=== PATIENT | male | born 1945 | race Caucasian/White ===

== ENCOUNTER 2016-07-29 06:43 | Day surgery (SDC) | payer MEDICARE ==
[~2016-07-29 06:43] MED LIST: ceFAZolin 1 GM in NORMAL SALINE MINI-BAG+ 100 ML IV ONE
[2016-07-29] MEDS ORDERED: ceFAZolin 1 GM/10 ML VIAL ONE (07:10)
[2016-07-29] MEDS ORDERED: BUPIVACAINE/EPI 0.25% 1 VIAL VIAL ONE (07:12)
[2016-07-29] MEDS ORDERED: BACITRACIN 14 APP/14 GM TUBE TOPICAL ONE (07:13)
[2016-07-29] MEDS ORDERED: SUCCINYLCHOLINE CHLORIDE 200 MG/10 ML VIAL ONE (07:35)
[2016-07-29] MEDS ORDERED: LIDOCAINE HCL 2% 20 ML VIAL ONE (07:35)
[2016-07-29] MEDS ORDERED: FENTANYL 250 MCG/5 ML VIAL ONE (07:35)
[2016-07-29] MEDS ORDERED: ROCURONIUM BROMIDE 50 MG/5 ML VIAL IV ONE (07:35)
[2016-07-29] MEDS ORDERED: ONDANSETRON HCL 4 MG/2 ML VIAL ONE (07:36)
[2016-07-29] MEDS ORDERED: DEXAMETHASONE 10 MG/ML VIAL ONE ×3 (07:37→09:18)
[2016-07-29] MEDS ORDERED: KETOROLAC TROMETHAMINE 30 MG/ML VIAL ONE (08:05)
[2016-07-29] MEDS ORDERED: DESFLURANE 240 ML BTL INHALATION ONE (08:58)
[2016-07-29 09:08] VITALS: TEMP 97.2
[2016-07-29 09:12] VITALS: O2SAT 96
[2016-07-29] MEDS ORDERED: BUPIVACAINE HCL/PF 0.25% 10 ML VIAL INJ ONE (09:18)
[2016-07-29] MEDS ORDERED: MORPHINE SULFATE 2 MG/ML SYR IV PRN (09:32)
[2016-07-29] MEDS ORDERED: MORPHINE SULFATE 10 MG/ML SYR ONE (09:38)
[2016-07-29 09:39] VITALS: PULSE 51
[2016-07-29] MEDS ORDERED: NORMAL SALINE FLUSH 10 ML ONE (09:40)
[2016-07-29 09:48] VITALS: BP 131/75; RESP 13
--- NOTE | 2016-07-29 10:54 | OPERATIVE REPORT ---
DATE OF SURGERY: 07/29/16 SURGEON: Suman Moseley DO ANESTHESIA: General. 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 POSTOPERATIVE DIAGNOSIS: Left knee medial meniscal tear, lateral meniscal tear, synovitis with chondromalacia. OPERATION PERFORMED: Left knee arthroscopy with medial and lateral meniscectomy , patella and trochlea chondroplasty, removal of loose body and synovectomy. SPECIMENS REMOVED: Pedunculated synovitis loose body. ESTIMATED BLOOD LOSS: Minimal. COMPLICATIONS: None. TOTAL TOURNIQUET TIME: 53 minutes. PROCEDURE NOTE: The patient was brought to the operating room suite and after administration of general anesthesia the left lower extremity was prepped and draped in a sterile fashion. A well padded tourniquet was applied to the left proximal thigh. The portal sites were injected with 0.25% bupivacaine with epinephrine prior to incision. The anterior lateral portal was created first and the anterior medial was created under direct visualization after first inserting a spinal needle. Diagnostic arthroscopy revealed the left knee medial meniscal tear, lateral meniscal tear, synovitis with chondromalacia. In the medial compartment of the knee there was a large pedunculated loose body which was very mobile and was a dark brown hemosiderin color and had fat which appeared to be dark yellow fat on the interior which was very dense. This lesion looked like it had been there for quite some time and had some vascularity throughout the synovitis on its surface with a core of dark dense yellow fat. This lesion was removed with a oscillating shaver. Synovitis throughout the knee was also removed in all 3 compartments. The patient had a complex tear of the medial meniscus which was saucerized back to a stable margin. The lateral meniscus was also torn at the anterior horn along its margin, which was also saucerized back to a stable margin with arthroscopic instrumentation. The trochlea and patella had grade 2 chondromalacia which was debrided and taken back to stable cartilage tissue. The knee was drained of all arthroscopic fluid and was closed using simple interrupted 3-0 nylon sutures. The knee was then injected with 10 mg of Dexamethasone. It was also dressed with bacitracin ointment, Xeroform, 4x4s, ABDs, cast padding, and an Rosalino. The patient was transferred from the operating room suite to the recovery room in stable condition. MICHELLE
--- NOTE | 2016-08-06 12:30 | PREOPERATIVE H&P ---
History of Present Illness (Suman Moseley DO; 07/20/2016 3:59 PM) The patient is a 71 year old male. Note:Patient presents to review his findings of his left knee MRI. Allergies (Janee Lopez, DAVIS; 07/20/2016 2:27 PM) No Known Drug Allergies Family History (Janee Lopez RN; 07/20/2016 2:27 PM) Mother @ 88 of Parkinson's, AAA Social History (Janee Lopez, DAVIS; 07/20/2016 2:27 PM) Tobacco Use Never smoker. Alcohol Use Occasional alcohol use, Drinks beer. 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 Flonase Allergy Relief (50MCG/ACT Suspension, 1 (one) Suspension Nasal 2 sprays each nostril daily, Taken starting 10/13/2015) Active. Cialis (5MG Tablet, 1 Tablet Oral daily for BPH, Taken starting 01/20/2016) Active. Gabapentin (100MG Capsule, 1 (one) Capsule Oral 1 tab bid x 1 wk, then 2 tab bid x 1 wk, Taken starting 07/07/2016) Active. Ativan (2MG Tablet, 1 (one) Tablet Oral 30 minutes prior to procedure, Taken starting 07/07/2016) Active. Centrum Silver Ultra Mens (Oral) Specific dose unknown - Active. Flax Seed Oil (Oral) Specific dose unknown - Active. Co Q 10 (100MG Capsule, Oral once daily) Active. Glucosamine Chondroitin Complx (one Oral daily) Specific dose unknown - Active. Hytrin (10MG Tablet, 1 Oral QHS) Active. Bisoprolol-Hydrochlorothiazide (2.5-6.25MG Tablet, 1 Oral daily PRN) Active. Ibuprofen (400MG Tablet, 1 Oral daily-TID PRN) Active. Fluorouracil Cream (PRN) Active. Nicotinamide (Riboside 100mg daily) Active. Nutritional Supplements (Macugard Oral [ocular supplement w/ Astaxanthin]) Active. Probiotic Formula (Florassist Oral) Active. Nutritional Supplements (Cognitex Oral) Active. Prostate (Oral) Active. Medications Reconciled Review of Systems (Janee Lopez RN; 07/20/2016 2:27 PM) General Not Present- Chills and Fever. Skin Not Present- Erythema, Skin Color Changes and Skin Problems. HEENT Not Present- Sleep Apnea. Neck Not Present- Neck Pain. Respiratory Not Present- Cough and Shortness of Breath. Cardiovascular Not Present- Chest Pain, Difficulty Breathing On Exertion, Fainting and Leg Pain and/or Swelling. Gastrointestinal Not Present- Abdominal Pain, Nausea and Vomiting. Male Genitourinary Not Present- Painful Urination and Urethral Discharge. Musculoskeletal Not Present- Decreased Range of Motion, Joint Pain, Joint Stiffness, Joint Swelling, Muscle Pain and Muscle Weakness. Neurological Not Present- Dizziness, Focal Neurological Symptoms, Numbness in extremities, Trouble walking and Weakness. Psychiatric Not Present- Anorexia, Anxiety and Depression. Endocrine Not Present- Weight Loss. Hematology Not Present- Bleeding Problems, DVT and Easy Bruising. Vitals (Janee Lopez RN; 07/20/2016 2:27 PM) 07/20/2016 2:26 PM Weight: 227 lb Height: 70.5in Body Surface Area: 2.21 m Body Mass Index: 32.11 kg/m Pulse: 68 (Regular) Resp.: 16 (Unlabored) BP: 112/70 (Sitting, Left Arm, Standard) Physical Exam (Suman Moseley DO; 07/20/2016 3:59 PM) MRI demonstrates chondromalacia of the medial femoral condyle and trochlea. There is also a tear in the medial meniscus. Assessment & Plan (Suman Moseley DO; 07/20/2016 4:00 PM) Acute medial meniscal tear, left, initial encounter (S83.242A) Impression: After educating the patient regarding treatment options with their associated risks and benefits, the patient elected to proceed with surgical treatment of the injury/pathology with LEFT KNEE ARTHROSCOPY. The risks and benefits of the specific procedure were explained and all questions and concerns were addressed and answered. Post operative rehabilitation requirements and expectations for optimal outcome were reviewed and the patient confirmed understanding these and committed to compliance. All questions answered. The patient will be optimized medically by consultation with their primary care physician prior to their procedure. Chondromalacia, left knee (M94.262) Signed by Suman Moseley DO (07/20/2016 4:00 PM) Patient was examined at bedside and no changes were noted. Signed Suman Moseley DO 07/29/2016. MTDD
--- NOTE | 2016-08-06 12:32 | PREOPERATIVE H&P ---
History of Present Illness (Janina Monroy RN; 07/22/2016 1:16 PM) The patient is a 71 year old male who presents for a consult. The patient is seen in consultation for other (Dr. Moseley). Subjective Barker Peeler(Andrés Gomez M.D.; 07/30/2016 2:35 PM) CC: Consult. Patient is a 71-year-old male has been referred by Orthopedic Surgeon Dr. Moseley for consultation, preoperative history and physical and surgical clearance. He is scheduled for left knee arthroscopy on 07/29/16. Please see Dr. Moseley's notes for further details with respect to the left knee. There are no concerns at this time. He continues to function at a 4 METS level. Hypertension, hyperlipidemia, hypertriglyceridemia, hypotestosteronism, BPH, obstructive sleep apnea on CPAP, PSVT, etc., are all stable. Reviewed updated allergies, medications, past medical history, social history and family history in detail with no significant changes warranted. ROS: No heart, lung, kidney infection, liver, diabetes, thyroid, seizures, PUD, skin, allergies or bleeding disorders. PREVENTIVE HEALTH: Gets annual flu shot. Had pneumovax and Prevnar in the past. 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) L1-L2, L5-S1; Dr Miller ED (erectile dysfunction) (N52.9) Effusion of left knee (M25.462) Fatigue (R53.83) History of renal stone (Z87.442) HTN (hypertension) (I10) Hyperlipidemia (E78.5) Hypertriglyceridemia (E78.1) Hypotestosteronism (E29.1) Knee pain, bilateral (M25.561, M25.562) Left lumbar radiculopathy (M54.16) Low back pain (M54.5) Macular Telangiectasia Obesity (E66.9) MEENA on CPAP (G47.33) CPAP Osteoarthritis (M19.90) Knees, Hips Osteoarthritis of knees, bilateral (M17.0) Dr Moseley PSVT (paroxysmal supraventricular tachycardia) (I47.1) Rhinitis, chronic (J31.0) 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 Tobacco Use Never smoker. Marital status . Number of Children 3. + 2 Stepchildren Medication History (Andrés Gomez M.D.; 07/22/2016 2:13 PM) Medications Reconciled Terazosin HCl (10MG Capsule, 1 Oral QHS, Taken starting 10/13/2015) Active. Flonase Allergy Relief (50MCG/ACT Suspension, 1 (one) Suspension Nasal 2 sprays each nostril daily, Taken starting 10/13/2015) Active. Cialis (5MG Tablet, 1 Tablet Oral daily for BPH, Taken starting 01/20/2016) Active. Ativan (2MG Tablet, 1 (one) Tablet Oral 30 minutes prior to procedure, Taken starting 07/07/2016) Active. Centrum Silver Ultra Mens (Oral) Specific dose unknown - Active. Flax Seed Oil (Oral) Specific dose unknown - Active. Co Q 10 (100MG Capsule, Oral once daily) Active. Glucosamine Chondroitin Complx (one Oral daily) Specific dose unknown - Active. Hytrin (10MG Tablet, 1 Oral QHS) Active. Bisoprolol-Hydrochlorothiazide (2.5-6.25MG Tablet, 1 Oral daily PRN) Active. Ibuprofen (400MG Tablet, 1 Oral daily-TID PRN) Active. Fluorouracil Cream (PRN) Active. Nicotinamide (Riboside 100mg daily) Active. Nutritional Supplements (Macugard Oral [ocular supplement w/ Astaxanthin]) Active. Probiotic Formula (Florassist Oral) Active. Nutritional Supplements (Cognitex Oral) Active. Prostate (Oral) Active. Gabapentin (100MG Capsule, 2 Oral bid, Taken starting 07/22/2016) Active. Depo-Testosterone (200MG/ML Solution, 1 (one) Intramuscular 1 ml IM qmo, Taken starting 07/22/2016) Active. Vitals (Janina Monroy RN; 07/22/2016 1:38 PM) 07/22/2016 1:35 PM Weight: 227 lb Height: 70.5in Weight was reported by patient. Height was reported by patient. Body Surface Area: 2.21 m Body Mass Index: 32.11 kg/m Temp.: 98.5F(Temporal) Pulse: 64 (Regular) Resp.: 16 (Unlabored) P.OX: 95% (Room air) BP: 130/82 (Sitting, Left Arm, Standard) Objective Barker Peeler(Andrés Gomez M.D.; 07/30/2016 2:35 PM) GENERAL: Well-developed, well-nourished overweight male in no acute distress, alert and oriented x3. HEENT: EOMI. PERRLA. Fundi difficult to visualize. Normal conjunctivae. TM's normal. No coryza. Pharynx not injected. NECK: No lymphadenopathy. No thyromegaly. No carotid bruits. Neck supple. CHEST: Clear. No rales, rhonchi or wheezes. Good breath sounds and symmetry throughout. COR: Regular, rate and rhythm without murmurs, gallops, rubs or clicks. No JVD. No ectopy. ABDOMEN: Soft, nontender. No hepatosplenomegaly. No masses. No bruits. No inguinal nodes. Bowel sounds present. EXTREMITIES: No clubbing, cyanosis or edema. Good peripheral pulses. Please see Dr. Moseley's note with respect to the left knee. NEUROLOGIC: Cranial nerves 2-12 intact. Motor 5/5, sensory intact. DTRs 0-1+. Cerebellar function normal. EKG: Sinus bradycardia at 59 b.p.m., normal EKG. Assessment & Plan (Andrés Gomez M.D.; 07/22/2016 4:53 PM) Pre-operative general physical examination (Z01.818) Story: Left Knee Arthroscopy; Dr. Moseley HTN (hypertension) (I10) Hyperlipidemia (E78.5) Hypertriglyceridemia (E78.1) Hypotestosteronism (E29.1) Obesity (E66.9) MEENA on CPAP (G47.33) Story: CPAP BPH (benign prostatic hyperplasia) (N40.0) ED (erectile dysfunction) (N52.9) Assessments Barker Peeler(Andrés Gomez M.D.; 07/30/2016 2:35 PM) 1. Preoperative history and physical for left knee arthroscopy surgery. 2. Hypertension. 3. Hyperlipidemia and hypertriglyceridemia. 4. Hypotestosteronism. 5. Obesity. 6. BPH. 7. History of PSVT, stable. Plans Barker Peeler(Andrés Gomez M.D.; 07/30/2016 2:35 PM) 1. Lab work pending. 2. Patient is considered cleared for above surgery. 3. Refill Sildenafil 51 mg p.o. daily p.r.n. prior to intercourse #10, 1 year refill (compound). 4. Patient will hold Glucosamine, Coenzyme Q10, flax seed, fish oil, Maud-3, Ibuprofen, etc., until after his surgery. Signed by Andrés Gomez M.D. (07/23/2016 5:14 PM) MICHELLE
== END 2016-07-29 10:03 | disposition home or self-care (01) ==
LOC: SDS 06:43
PROVIDERS: ATTEND Orthopaedic Surgery
DX: S83.242A Other tear of medial meniscus, current injury, left knee, initial encounter (principal); M22.42 Chondromalacia patellae, left knee; I10 Essential (primary) hypertension; E78.5 Hyperlipidemia, unspecified; E29.1 Testicular hypofunction; E66.9 Obesity, unspecified; G47.33 Obstructive sleep apnea (adult) (pediatric); N40.0 Benign prostatic hyperplasia without lower urinary tract symptoms; Z79.899 Other long term (current) drug therapy
CPT/HCPCS: 29874; 29876; 29880; J0690; J1100; J1885; J2270; J2405; J3010